=== PATIENT | female | born 1970 | race Caucasian/White ===

== ENCOUNTER 2019-12-06 13:30 | Outpatient (RCR) | payer OTHER, SELFPAY ==
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
--- NOTE | 2020-02-11 18:25 | HP.PT.NRP ---
ROXY BAZZI was seen in my office for initial evaluation on 11/08/19. The following Plan of Care was established for this patient: Initial Frequency: 3x /Week Initial Duration: 4-6 Weeks Patient/Client Instruction: Educate patient on: Condition, Plan of Care For the Purpose of:: To increase ROM, To improve nutrient delivery to tissue, To improve muscle performance and motor function, To increase tolerance to activity/condition/position Therapeutic Exercise to Include: Strength training, Balance training, Flexibilty training, Gait and locomotor training, Neuromotor development For the Purpose of:: To increase ROM, To improve muscle performance and motor function, To increase tolerance to activity/condition/position, To improve ability of physical actions for home/community/work/leisure, To improve gait and locomotor functions Manual Therapy Techniques to Include: Scar massage, Mobilization, Soft tissue mobilization For the Purpose of:: To decrease swelling/inflammation, To increase ROM, To improve ability of physical actions for home/community/work/leisure Cryotherapy (ice pack, ice massage): Yes For the Purpose of:: To decrease swelling/inflammation This patient was last seen in our office 12/06/19. Pertinent comments regarding their Physical therapy will appear below: Pt seen 11 visits adn was 85% improved. She was to f/u in early January to ensure progress but did not attend. at this point, it has been over two months asn I will discontinue due to nonattendance At this point I will be discontinuing this patient from physical therapy. I would be happy to see this patient again in the future if found appropriate by the physician. Thank you! Jose R Lozada, DPT, OCS, CSCS
== END 2019-12-06 19:00 | disposition home or self-care (01) ==
LOC: PT 13:30
DX: Z47.89 Encounter for other orthopedic aftercare (principal)
CPT/HCPCS: 97110; 97140; 97161; 97164; 97530

== ENCOUNTER → 2019-12-06 14:08 | Outpatient (CLI) | payer OTHER, SELFPAY ==
[2019-12-05 14:30] VITALS: BMI 29.7
== END ==
PROVIDERS: Referring Provider Podiatrist; Visit Provider Podiatrist
DX: E55.9 Vitamin D deficiency, unspecified (principal); S82.53XA Displaced fracture of medial malleolus of unspecified tibia, initial encounter for closed fracture; X58.XXXA Exposure to other specified factors, initial encounter; Y93.9 Activity, unspecified; Y92.9 Unspecified place or not applicable; Y99.9 Unspecified external cause status
CPT/HCPCS: 36415; 82306